=== PATIENT | female | born 1990 | race African-American/Black ===

== ENCOUNTER 2017-04-05 18:29 | Emergency (ER) | payer OTHER ==
[~2017-04-05] VITALS: Ht 170.2 cm; Wt 81.6 kg
--- NOTE | 2017-04-05 18:35 | NUR ---
[id number] FROM ASSISTED, AAOX3, IN [employer]ICE CUSTODY FOR MEDICAL CLEARANCE,METH PIPE IN ANUS SINCE THURSDAY. RR IS EVEN AND UNLABORED WITH NAD NOTED. SKIN IS WARM AND DRY. AWAITING MD FOR EVAL.
--- NOTE | 2017-04-05 20:30 | NUR ---
Dr Caba at bedside for rectal exam.
--- NOTE | 2017-04-05 21:41 | NUR ---
xr at bedside.
[2017-04-05 22:16] VITALS: BP 137/74
--- NOTE | 2017-04-05 22:16 | NUR ---
Patient discharged to police custody in stable condition. Written and verbal after care instructions given. Patient verbalizes understanding of instruction. Patient is ambulatory with steady gait, no further complaints.
== END 2017-04-05 22:47 ==
LOC: ER 18:36
DX: R10.9 Unspecified abdominal pain (principal); Z90.49 Acquired absence of other specified parts of digestive tract; Z88.0 Allergy status to penicillin
CPT/HCPCS: 74000-TC; 84703-TC; A4606; Z7610